=== PATIENT | female | born 1980 | race Caucasian/White ===

== ENCOUNTER 2019-04-28 15:18 | Emergency (ER) | payer SELFPAY ==
[~2019-04-28] VITALS: Ht 162.6 cm; Wt 50.8 kg
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
[2019-04-28] MEDS ORDERED: IBUPROFEN 600 MG TABLET ONE (15:53)
[2019-04-28] MEDS ORDERED: ACETAMINOPHEN ES 500 MG TABLET ONE (15:53)
[2019-04-28] MEDS: ACETAMINOPHEN ES 500 MG TABLET PO ONE (15:54)
[2019-04-28] MEDS: IBUPROFEN 600 MG TABLET PO ONE (15:54)
--- NOTE | 2019-04-28 16:24 | NUR ---
Patient discharged to home in stable conditon. Written and verbal after care instructions given. Patient verbalizes understanding of instructions. ALL BELONGINGS W/ PT. PT SELF-AMBULATED W/O DIFFICULTY.
[2019-04-28 16:25] VITALS: BP 112/72
== END 2019-04-28 16:28 | disposition home or self-care (01) ==
LOC: ER 15:22
DX: M54.2 Cervicalgia (principal); M54.5 Low back pain; V49.9XXA Car occupant (driver) (passenger) injured in unspecified traffic accident, initial encounter; Y93.89 Activity, other specified; Y92.89 Other specified places as the place of occurrence of the external cause; Y99.8 Other external cause status
CPT/HCPCS: A4663; A9150